=== PATIENT | female | born 1945 | race Caucasian/White ===

== ENCOUNTER 2017-11-28 15:52 | Inpatient (IN) | payer MEDICARE, OTHER ==
[~2017-11-28] VITALS: Ht 154.9 cm; Wt 54.9 kg
[~2017-11-28 15:52] MED LIST: BIOTIN PO; FURO-150 PO; SPIR25TA3 PO; VITAMIN D PO; VITC500T PO
[2017-11-28 16:42] LABS: BASOPHILS % (AUTO) 0.4 % (0-1); EOSINOPHILS # (AUTO) 0.1 X10'3 (0-0.9); EOSINOPHILS % (AUTO) 2.1 % (0-6); HEMATOCRIT 32.2 % (35.0-45.0); HEMOGLOBIN 11.2 g/dl (12.0-16.0); LYMPHOCYTES # (AUTO) 0.4 X10'3 (1.1-4.8); LYMPHOCYTES % (AUTO) 9.7 % (21-51); MEAN CORPUSCULAR HEMOGLOBIN 32.4 PG (27.0-31.0); MEAN CORPUSCULAR HGB CONC 34.7 % (33.0-36.5); MEAN CORPUSCULAR VOLUME 93.2 FL (78-98); MEAN PLATELET VOLUME 6.9 FL (7.4-10.4); MONOCYTES # (AUTO) 0.4 X10'3 (0-0.9); MONOCYTES % (AUTO) 10.4 % (2-12); NEUTROPHILS % (AUTO) 77.4 % (42-75); PLATELET COUNT 68 X10'3 (140-440); RED BLOOD COUNT 3.46 X10'6 (4.20-5.60); RED CELL DISTRIBUTION WIDTH 15.7 % (11.5-14.5); WHITE BLOOD COUNT 3.9 X10'3 (4.5-11.0)
[2017-11-28 16:51] LABS: INR 1.2 INR; PROTHROMBIN TIME 12.8 SECONDS (9.0-12.0)
[2017-11-28 16:59] LABS: ALANINE AMINOTRANSFERASE 28 U/L (12-78); ALBUMIN 2.7 G/DL (3.4-5.0); ALBUMIN/GLOBULIN RATIO 0.6 (1.1-1.5); ALKALINE PHOSPHATASE 92 IU/L (46-116); ANION GAP 9 (8-16); ASPARTATE AMINO TRANSFERASE 42 U/L (10-37); BILIRUBIN,TOTAL 1.8 MG/DL (0.1-1.0); BLOOD UREA NITROGEN 18 MG/DL (7-18); BUN/CREATININE RATIO 16.5 (6.6-38.0); CALCIUM 8.8 MG/DL (8.5-10.1); CHLORIDE 109 MMOL/L (99-107); CREATININE 1.09 MG/DL (0.40-0.90); ETHANOL < 0.010 GM/DL (0.0-0.010); GLUCOSE 123 MG/DL (70-104); POTASSIUM 3.6 MMOL/L (3.5-5.1); SODIUM 141 MMOL/L (135-145); TOTAL CARBON DIOXIDE 23.5 MMOL/L (24-32); TOTAL PROTEIN 6.9 G/DL (6.4-8.2); eGFR 50 ML/MIN
[2017-11-28 19:51] LABS: CLARITY,URINE SLIGHTLY CLOUDY (Clear); COLOR,URINE YELLOW (Yellow); GLUCOSE, URINE NEGATIVE (Neg); KETONES,URINE NEGATIVE (Neg); LEUKOCYTE ESTERASE ,URINE SMALL (Neg); NITRITES, URINE POSITIVE (Neg); OCCULT BLOOD,URINE LARGE (Neg); PROTEIN,URINE NEGATIVE (Neg)
[2017-11-28] MEDS ORDERED: normal saline 1000ML IV soln IVB ONE (20:00)
[2017-11-28] MEDS ORDERED: lactulose 20gm/30ml cup PO ONE (20:00)
[2017-11-28 20:07] LABS: UA COLLECTION TYPE CLN CATCH MIDSTREAM
[2017-11-28 20:08] LABS: BACTERIA,URINE 2+ /HPF (Neg); RBC,URINE 0-2 /HPF (0-2); SQUAMOUS EPITHELIAL CELL,UR FEW /LPF (FEW)
[2017-11-28] MEDS: normal saline 1000ml 1,000 ML IV SCH (20:22)
[2017-11-28] MEDS ORDERED: ondansetron/PF 4mg/2ml inj IV PRN (20:25)
[2017-11-28] MEDS ORDERED: magnesium hydroxide 30ml (MOM) UD suspension PO PRN (20:25)
[2017-11-28] MEDS ORDERED: mag hydrox/Alum hydrox/simeth 30ml oral suspension PO PRN (20:25)
[2017-11-28] MEDS ORDERED: traMADol 50MG tablet PO PRN (20:35)
[2017-11-28] MEDS: pantoprazole 40 MG vial IV SCH (21:16)
[2017-11-28] MEDS ORDERED: PANT40TA4 PO (22:59)
[2017-11-28] MEDS ORDERED: TRAM50TA2 PO (22:59)
[2017-11-28 23:00] VITALS: BP 126/55
[2017-11-28 23:18] LABS: URINE AMPHETAMINE SCREEN NEGATIVE (Neg); URINE BARBITUATE SCREEN NEGATIVE (Neg); URINE BENZODIAZEPINES SCREEN NEGATIVE (Neg); URINE CANNABINOID SCREEN NEGATIVE (Neg); URINE COCAINE SCREEN NEGATIVE (Neg); URINE METHADONE SCREEN NEGATIVE (Neg); URINE OPIATE SCREEN NEGATIVE (Neg); URINE PHENCYCLIDINE SCREEN NEGATIVE (Neg)
[2017-11-29] VITALS (11 sets, daily range): BP systolic 102–145; BP diastolic 34–69
[2017-11-29 06:36] LABS: HEMATOCRIT 24.6 % (35.0-45.0); HEMOGLOBIN 8.6 g/dl (12.0-16.0); MEAN CORPUSCULAR HEMOGLOBIN 32.4 PG (27.0-31.0); MEAN CORPUSCULAR HGB CONC 34.8 % (33.0-36.5); MEAN CORPUSCULAR VOLUME 93.1 FL (78-98); MEAN PLATELET VOLUME 7.3 FL (7.4-10.4); RED BLOOD COUNT 2.64 X10'6 (4.20-5.60); RED CELL DISTRIBUTION WIDTH 15.4 % (11.5-14.5)
[2017-11-29 07:01] LABS: ALBUMIN 2.1 G/DL (3.4-5.0); ANION GAP 9 (8-16); BLOOD UREA NITROGEN 15 MG/DL (7-18); BUN/CREATININE RATIO 16.1 (6.6-38.0); CALCIUM 7.6 MG/DL (8.5-10.1); CHLORIDE 116 MMOL/L (99-107); CREATININE 0.93 MG/DL (0.40-0.90); GLUCOSE 84 MG/DL (70-104); POTASSIUM 3.6 MMOL/L (3.5-5.1); SODIUM 145 MMOL/L (135-145); TOTAL CARBON DIOXIDE 19.9 MMOL/L (24-32); eGFR 60 ML/MIN
[2017-11-29 07:05] LABS: PLATELET COUNT 45 X10'3 (140-440)
[2017-11-29 07:09] LABS: ANISOCYTOSIS 1+; PLATELET ESTIMATE DECREASED; TOTAL CELLS COUNTED 100
[2017-11-29] MEDS: CefTRIAXone 2gm/D5W 50ml ADVTG 50 ML IV SCH (08:12)
[2017-11-29] MEDS: furosemide 20MG tablet PO SCH (08:12)
[2017-11-29] MEDS: pantoprazole 40 MG vial IV SCH ×2 (08:13→21:03)
[2017-11-29] MEDS: spironolactone 25 MG tablet PO SCH ×2 (08:13→21:03)
[2017-11-29] MEDS: normal saline 1000ml 1,000 ML IV SCH ×2 (08:17→21:04)
[2017-11-29] MEDS ORDERED: MIDAZolam 1mg/ml 10ml vial IV PRN (12:10)
[2017-11-29] MEDS ORDERED: simethicone 40mg/0.6ml oral drops 30ml MC ONE (12:10)
[2017-11-29] MEDS ORDERED: fentaNYL/PF 50MCG/1 ML 2ML syringe IV PRN (12:10)
[2017-11-29] MEDS ORDERED: normal saline 1000ml 1,000 ML IV SCH (12:10)
[2017-11-29] MEDS ORDERED: LIDOcaine Viscous 15ml cup PO ONE (12:10)
[2017-11-29] MEDS ORDERED: fentaNYL/PF 50MCG/1 ML 2ML syringe ONE (12:27)
[2017-11-29] MEDS ORDERED: MIDAZolam 1mg/ml 10ml vial ONE (12:27)
[2017-11-29] MEDS ORDERED: LIDOcaine Viscous 15ml cup ONE (12:27)
[2017-11-29 17:02] LABS: HEMATOCRIT 27.9 % (35.0-45.0); HEMOGLOBIN 9.6 g/dl (12.0-16.0); MEAN CORPUSCULAR HGB CONC 34.3 % (33.0-36.5); MEAN CORPUSCULAR VOLUME 93.3 FL (78-98); MEAN PLATELET VOLUME 6.7 FL (7.4-10.4); PLATELET COUNT 55 X10'3 (140-440); RED BLOOD COUNT 2.99 X10'6 (4.20-5.60); RED CELL DISTRIBUTION WIDTH 15.4 % (11.5-14.5); WHITE BLOOD COUNT 2.5 X10'3 (4.5-11.0)
[2017-11-30] MEDS: normal saline 1000ml 1,000 ML IV SCH ×2 (02:22→04:48)
[2017-11-30 03:00] VITALS: BP 106/35
[2017-11-30 05:17] LABS: BASOPHILS % (AUTO) 0.6 % (0-1); EOSINOPHILS # (AUTO) 0.1 X10'3 (0-0.9); EOSINOPHILS % (AUTO) 5.7 % (0-6); HEMOGLOBIN 8.4 g/dl (12.0-16.0); LYMPHOCYTES # (AUTO) 0.3 X10'3 (1.1-4.8); LYMPHOCYTES % (AUTO) 14.7 % (21-51); MEAN CORPUSCULAR HEMOGLOBIN 32.3 PG (27.0-31.0); MEAN CORPUSCULAR HGB CONC 34.8 % (33.0-36.5); MEAN CORPUSCULAR VOLUME 92.9 FL (78-98); MEAN PLATELET VOLUME 7.1 FL (7.4-10.4); MONOCYTES # (AUTO) 0.2 X10'3 (0-0.9); MONOCYTES % (AUTO) 12.2 % (2-12); NEUTROPHILS # (AUTO) 1.4 X10'3 (1.8-7.7); NEUTROPHILS % (AUTO) 66.8 % (42-75); RED BLOOD COUNT 2.58 X10'6 (4.20-5.60); RED CELL DISTRIBUTION WIDTH 15.5 % (11.5-14.5)
[2017-11-30 05:24] LABS: PLATELET COUNT 46 X10'3 (140-440)
[2017-11-30 05:52] LABS: ANION GAP 12 (8-16); BLOOD UREA NITROGEN 15 MG/DL (7-18); BUN/CREATININE RATIO 13.9 (6.6-38.0); CALCIUM 7.4 MG/DL (8.5-10.1); CHLORIDE 114 MMOL/L (99-107); CREATININE 1.08 MG/DL (0.40-0.90); GLUCOSE 77 MG/DL (70-104); POTASSIUM 3.4 MMOL/L (3.5-5.1); SODIUM 145 MMOL/L (135-145); TOTAL CARBON DIOXIDE 18.7 MMOL/L (24-32); eGFR 50 ML/MIN
[2017-11-30 06:00] VITALS: BP 101/32
[2017-11-30 07:04] LABS: PLATELET ESTIMATE DECREASED; TOTAL CELLS COUNTED 100
[2017-11-30 07:05] LABS: ANISOCYTOSIS 1+
[2017-11-30 07:06] LABS: ELLIPTOCYTES 1+; POIKILOCYTOSIS 1+; POLYCHROMASIA 1+
[2017-11-30 07:07] LABS: TEAR DROP CELLS 1+
[2017-11-30] MEDS ORDERED: LACTOBACILLUS RHAMNOSUS GG 15 billion unit sprinkle caps PO SCH (07:30)
[2017-11-30] MEDS: pantoprazole 40 MG vial IV SCH (08:34)
[2017-11-30] MEDS: spironolactone 25 MG tablet PO SCH (08:34)
[2017-11-30] MEDS: furosemide 20MG tablet PO SCH (08:34)
[2017-11-30] MEDS: CefTRIAXone 2gm/D5W 50ml ADVTG 50 ML IV SCH (08:34)
[2017-11-30] MEDS ORDERED: magnesium Cl slow-release 64mg tablet PO PRN (09:00)
[2017-11-30] MEDS ORDERED: potassium Cl 40MEQ/NS 500ml 500 ML IV PRN ×2 (09:00)
[2017-11-30] MEDS ORDERED: magnesium 2GM in 50ml NS 50 ML IV PRN (09:00)
[2017-11-30] MEDS ORDERED: potassium Cl 20 mEq SR tablet PO PRN ×2 (09:00)
[2017-11-30] MEDS ORDERED: magnesium 4gm in 100ml NS 100 ML IV PRN (09:00)
[2017-11-30 11:00] VITALS: BP 131/47
[2017-11-30 12:26] LABS: HEMATOCRIT 29.7 % (35.0-45.0); HEMOGLOBIN 10.2 g/dl (12.0-16.0); MEAN CORPUSCULAR HEMOGLOBIN 32.2 PG (27.0-31.0); MEAN CORPUSCULAR HGB CONC 34.4 % (33.0-36.5); MEAN CORPUSCULAR VOLUME 93.4 FL (78-98); MEAN PLATELET VOLUME 6.9 FL (7.4-10.4); PLATELET COUNT 57 X10'3 (140-440); RED BLOOD COUNT 3.18 X10'6 (4.20-5.60); RED CELL DISTRIBUTION WIDTH 15.3 % (11.5-14.5); WHITE BLOOD COUNT 2.7 X10'3 (4.5-11.0)
[2017-11-30] MEDS ORDERED: PANT-47 PO (14:15)
[2017-11-30 15:00] VITALS: BP 112/41
== END 2017-11-30 16:25 | disposition home or self-care (01) | DRG 441 ==
LOC: ER 15:54 → ED HOLD 20:22 → PCU 3S 21:59
PROVIDERS: ADMIT Internal Medicine; ATTEND Family Medicine
PROC: 0W3P8ZZ Control Bleeding in Gastrointestinal Tract, Via Natural or Artificial Opening Endoscopic (ICD-10-PCS; principal; 2017-11-29)
DX: K72.90 Hepatic failure, unspecified without coma (principal); I85.11 Secondary esophageal varices with bleeding; N17.9 Acute kidney failure, unspecified; D69.59 Other secondary thrombocytopenia; E86.0 Dehydration; D62 Acute posthemorrhagic anemia; K76.6 Portal hypertension; N39.0 Urinary tract infection, site not specified; K74.60 Unspecified cirrhosis of liver; K31.89 Other diseases of stomach and duodenum; K31.819 Angiodysplasia of stomach and duodenum without bleeding; B19.20 Unspecified viral hepatitis C without hepatic coma; Z90.89 Acquired absence of other organs; Z79.899 Other long term (current) drug therapy
CPT/HCPCS: 36415; 80048; 80053; 80305; 80320; 81001; 82140; 85025; 85027; 85610; 86885; 86900; 86901; 87070; 87077; 87088; 87186; 99285; A4620; C9113; G0500; J0696; J2250; J3010; J7030

== ENCOUNTER 2017-12-09 13:56 | Inpatient (IN) | payer MEDICARE, OTHER ==
[~2017-12-09] VITALS: Ht 149.9 cm; Wt 65.0 kg
[~2017-12-09 13:56] MED LIST changes: +PANT-47 PO; +TRAM50TA2 PO
[2017-12-09 14:47] LABS: BASOPHILS % (AUTO) 0.3 % (0-1); EOSINOPHILS # (AUTO) 0.1 X10'3 (0-0.9); EOSINOPHILS % (AUTO) 4.8 % (0-6); HEMATOCRIT 26.9 % (35.0-45.0); HEMOGLOBIN 9.3 g/dl (12.0-16.0); LYMPHOCYTES # (AUTO) 0.3 X10'3 (1.1-4.8); LYMPHOCYTES % (AUTO) 15.3 % (21-51); MEAN CORPUSCULAR HEMOGLOBIN 31.8 PG (27.0-31.0); MEAN CORPUSCULAR HGB CONC 34.6 % (33.0-36.5); MEAN CORPUSCULAR VOLUME 91.9 FL (78-98); MEAN PLATELET VOLUME 6.9 FL (7.4-10.4); MONOCYTES # (AUTO) 0.3 X10'3 (0-0.9); MONOCYTES % (AUTO) 11.9 % (2-12); NEUTROPHILS # (AUTO) 1.5 X10'3 (1.8-7.7); NEUTROPHILS % (AUTO) 67.7 % (42-75); PLATELET COUNT 54 X10'3 (140-440); RED BLOOD COUNT 2.93 X10'6 (4.20-5.60); RED CELL DISTRIBUTION WIDTH 14.9 % (11.5-14.5); WHITE BLOOD COUNT 2.2 X10'3 (4.5-11.0)
[2017-12-09 14:57] LABS: INR 1.3 INR; PROTHROMBIN TIME 13.6 SECONDS (9.0-12.0)
[2017-12-09] MEDS ORDERED: lactulose 20gm/30ml cup PO ONE ×2 (15:00→16:25)
[2017-12-09 15:16] LABS: ALANINE AMINOTRANSFERASE 22 U/L (12-78); ALBUMIN 2.3 G/DL (3.4-5.0); ALBUMIN/GLOBULIN RATIO 0.7 (1.1-1.5); ALKALINE PHOSPHATASE 71 IU/L (46-116); ANION GAP 7 (8-16); ASPARTATE AMINO TRANSFERASE 33 U/L (10-37); BILIRUBIN,TOTAL 1.2 MG/DL (0.1-1.0); BLOOD UREA NITROGEN 14 MG/DL (7-18); CALCIUM 7.4 MG/DL (8.5-10.1); CHLORIDE 111 MMOL/L (99-107); GLUCOSE 85 MG/DL (70-104); MAGNESIUM 1.4 MG/DL (1.5-2.4); POTASSIUM 3.4 MMOL/L (3.5-5.1); SODIUM 142 MMOL/L (135-145); TOTAL CARBON DIOXIDE 24.5 MMOL/L (24-32); TOTAL PROTEIN 5.8 G/DL (6.4-8.2); eGFR 55 ML/MIN
[2017-12-09 15:29] LABS: PLATELET ESTIMATE DECREASED
[2017-12-09 15:30] LABS: ELLIPTOCYTES 1+; TEAR DROP CELLS 1+
[2017-12-09 15:31] LABS: ANISOCYTOSIS 1+; POIKILOCYTOSIS 1+
[2017-12-09 15:40] LABS: TOTAL CELLS COUNTED 100
[2017-12-09 15:45] LABS: CLARITY,URINE CLOUDY (Clear); COLOR,URINE YELLOW (Yellow); GLUCOSE, URINE NEGATIVE (Neg); KETONES,URINE NEGATIVE (Neg); LEUKOCYTE ESTERASE ,URINE SMALL (Neg); NITRITES, URINE NEGATIVE (Neg); OCCULT BLOOD,URINE MODERATE (Neg); PH,URINE 6.5 (4.8-8.0); PROTEIN,URINE NEGATIVE (Neg); UROBILINOGEN,URINE >=8.0 E.U/dL (0.2-1.0)
[2017-12-09 15:50] LABS: UA COLLECTION TYPE STRAIGHT CATH
[2017-12-09 15:54] LABS: RBC,URINE 0-2 /HPF (0-2); WBC,URINE 30-50 /HPF (0-4)
[2017-12-09 15:55] LABS: BACTERIA,URINE 4+ /HPF (Neg); SQUAMOUS EPITHELIAL CELL,UR FEW /LPF (FEW)
[2017-12-09] MEDS ORDERED: lactulose 20gm/30ml cup RC ONE (16:30)
[2017-12-09] MEDS ORDERED: cefTRIAXone 1g/NS 100ml IVPB 100 ML IV ONE (17:00)
[2017-12-09] MEDS ORDERED: ondansetron/PF 4mg/2ml inj IV PRN (17:25)
[2017-12-09] MEDS ORDERED: acetaminophen 325mg tablet PO PRN (17:25)
[2017-12-09] MEDS ORDERED: magnesium 2GM in 50ml NS 50 ML IV PRN (17:25)
[2017-12-09] MEDS ORDERED: potassium Cl 40MEQ/NS 500ml 500 ML IV PRN ×2 (17:25)
[2017-12-09] MEDS ORDERED: potassium Cl 20 mEq SR tablet PO PRN (17:25)
[2017-12-09] MEDS ORDERED: magnesium 4gm in 100ml NS 100 ML IV PRN (17:25)
[2017-12-09] MEDS ORDERED: mag hydrox/Alum hydrox/simeth 30ml oral suspension PO PRN (17:25)
[2017-12-09] MEDS ORDERED: magnesium Cl slow-release 64mg tablet PO PRN (17:25)
[2017-12-09] MEDS ORDERED: traMADol 50MG tablet PO PRN (17:35)
[2017-12-09] MEDS: pantoprazole 40 MG vial IV SCH (17:57)
[2017-12-09] MEDS: lactulose 20gm/30ml cup PO SCH (20:59)
[2017-12-09] MEDS ORDERED: temazepam 15mg capsule PO PRN (21:00)
[2017-12-09] MEDS: rifaximin 550mg tablet PO SCH (21:00)
[2017-12-09] MEDS: spironolactone 25 MG tablet PO SCH (21:00)
[2017-12-09 21:30] VITALS: BP 130/56
[2017-12-10] VITALS: BP 109/51
[2017-12-10 05:24] LABS: BASOPHILS % (AUTO) 0.8 % (0-1); EOSINOPHILS # (AUTO) 0.1 X10'3 (0-0.9); EOSINOPHILS % (AUTO) 4.5 % (0-6); HEMATOCRIT 27.3 % (35.0-45.0); HEMOGLOBIN 9.4 g/dl (12.0-16.0); LYMPHOCYTES # (AUTO) 0.3 X10'3 (1.1-4.8); MEAN CORPUSCULAR HEMOGLOBIN 31.7 PG (27.0-31.0); MEAN CORPUSCULAR HGB CONC 34.2 % (33.0-36.5); MEAN CORPUSCULAR VOLUME 92.4 FL (78-98); MEAN PLATELET VOLUME 6.9 FL (7.4-10.4); MONOCYTES # (AUTO) 0.3 X10'3 (0-0.9); MONOCYTES % (AUTO) 12.2 % (2-12); NEUTROPHILS # (AUTO) 1.8 X10'3 (1.8-7.7); NEUTROPHILS % (AUTO) 70.5 % (42-75); PLATELET COUNT 64 X10'3 (140-440); RED BLOOD COUNT 2.95 X10'6 (4.20-5.60); RED CELL DISTRIBUTION WIDTH 14.4 % (11.5-14.5); WHITE BLOOD COUNT 2.5 X10'3 (4.5-11.0)
[2017-12-10 05:36] LABS: ALANINE AMINOTRANSFERASE 24 U/L (12-78); ALBUMIN 2.3 G/DL (3.4-5.0); ALBUMIN/GLOBULIN RATIO 0.7 (1.1-1.5); ALKALINE PHOSPHATASE 70 IU/L (46-116); ANION GAP 8 (8-16); ASPARTATE AMINO TRANSFERASE 36 U/L (10-37); BILIRUBIN,TOTAL 1.2 MG/DL (0.1-1.0); BLOOD UREA NITROGEN 12 MG/DL (7-18); CALCIUM 7.9 MG/DL (8.5-10.1); CHLORIDE 109 MMOL/L (99-107); GLUCOSE 97 MG/DL (70-104); MAGNESIUM 1.8 MG/DL (1.5-2.4); POTASSIUM 3.3 MMOL/L (3.5-5.1); SODIUM 141 MMOL/L (135-145); TOTAL PROTEIN 5.8 G/DL (6.4-8.2); eGFR 55 ML/MIN
[2017-12-10 07:49] VITALS: BP 109/59
[2017-12-10 07:59] LABS: EOSINOPHILS % (MANUAL) 4 % (0-6); LYMPHOCYTES % (MANUAL) 15 % (21-51); MONOCYTES % (MANUAL) 14 % (2-12); NEUTROPHILS % (MANUAL) 67 % (42-75); PLATELET ESTIMATE DECREASED; TOTAL CELLS COUNTED 100
[2017-12-10 08:00] LABS: ELLIPTOCYTES 1+; TEAR DROP CELLS 1+
[2017-12-10] MEDS ORDERED: BIOTIN 1000 MG PO SCH (08:00)
[2017-12-10] MEDS: K and/or MAG REPLACEMENT MC SCH (08:00)
[2017-12-10] MEDS: lactulose 20gm/30ml cup PO SCH ×2 (08:02→19:36)
[2017-12-10] MEDS: pantoprazole 40 MG vial IV SCH (08:03)
[2017-12-10] MEDS: furosemide 20MG tablet PO SCH (08:03)
[2017-12-10] MEDS: spironolactone 25 MG tablet PO SCH ×2 (08:03→19:35)
[2017-12-10] MEDS: rifaximin 550mg tablet PO SCH ×2 (08:03→19:35)
[2017-12-10] MEDS: cefTRIAXone 1g/NS 100ml IVPB 100 ML IV SCH (08:04)
[2017-12-10] MEDS: potassium Cl 20 mEq SR tablet PO PRN ×3 (08:05→22:43)
[2017-12-10] MEDS: cholecalciferol (vitamin D) 400 unit tablet PO SCH (09:53)
[2017-12-10 11:32] VITALS: BP 127/59
[2017-12-10 19:00] VITALS: BP 124/51
[2017-12-10 23:30] VITALS: BP 109/61
[2017-12-11 05:21] LABS: BASOPHILS % (AUTO) 0.7 % (0-1); EOSINOPHILS # (AUTO) 0.1 X10'3 (0-0.9); EOSINOPHILS % (AUTO) 5.9 % (0-6); HEMOGLOBIN 9.2 g/dl (12.0-16.0); LYMPHOCYTES # (AUTO) 0.5 X10'3 (1.1-4.8); LYMPHOCYTES % (AUTO) 18.4 % (21-51); MEAN CORPUSCULAR HEMOGLOBIN 32.7 PG (27.0-31.0); MEAN CORPUSCULAR HGB CONC 35.5 % (33.0-36.5); MEAN CORPUSCULAR VOLUME 92.2 FL (78-98); MEAN PLATELET VOLUME 6.9 FL (7.4-10.4); MONOCYTES # (AUTO) 0.3 X10'3 (0-0.9); MONOCYTES % (AUTO) 12.4 % (2-12); NEUTROPHILS # (AUTO) 1.6 X10'3 (1.8-7.7); NEUTROPHILS % (AUTO) 62.6 % (42-75); PLATELET COUNT 56 X10'3 (140-440); RED BLOOD COUNT 2.82 X10'6 (4.20-5.60); RED CELL DISTRIBUTION WIDTH 13.7 % (11.5-14.5); WHITE BLOOD COUNT 2.5 X10'3 (4.5-11.0)
[2017-12-11 05:59] LABS: ALANINE AMINOTRANSFERASE 24 U/L (12-78); ALBUMIN 2.1 G/DL (3.4-5.0); ALBUMIN/GLOBULIN RATIO 0.6 (1.1-1.5); ALKALINE PHOSPHATASE 63 IU/L (46-116); ANION GAP 6 (8-16); ASPARTATE AMINO TRANSFERASE 32 U/L (10-37); BILIRUBIN,TOTAL 1.2 MG/DL (0.1-1.0); BLOOD UREA NITROGEN 13 MG/DL (7-18); BUN/CREATININE RATIO 11.8 (6.6-38.0); CALCIUM 7.9 MG/DL (8.5-10.1); CHLORIDE 112 MMOL/L (99-107); GLUCOSE 92 MG/DL (70-104); MAGNESIUM 1.8 MG/DL (1.5-2.4); POTASSIUM 4.4 MMOL/L (3.5-5.1); SODIUM 142 MMOL/L (135-145); TOTAL CARBON DIOXIDE 23.6 MMOL/L (24-32); TOTAL PROTEIN 5.4 G/DL (6.4-8.2); eGFR 49 ML/MIN
[2017-12-11 06:22] LABS: PLATELET ESTIMATE DECREASED; TOTAL CELLS COUNTED 100
[2017-12-11 06:23] LABS: ELLIPTOCYTES 1+; POLYCHROMASIA 1+; TEAR DROP CELLS 1+
[2017-12-11 07:00] VITALS: BP 112/52
[2017-12-11] MEDS ORDERED: pantoprazole 40mg Tablet.DR PO SCH (07:30)
[2017-12-11] MEDS ORDERED: LACTOBACILLUS RHAMNOSUS GG 15 billion unit sprinkle caps PO SCH (07:30)
[2017-12-11] MEDS: K and/or MAG REPLACEMENT MC SCH (08:00)
[2017-12-11] MEDS: cholecalciferol (vitamin D) 400 unit tablet PO SCH (09:09)
[2017-12-11] MEDS: rifaximin 550mg tablet PO SCH (09:09)
[2017-12-11] MEDS: furosemide 20MG tablet PO SCH (09:10)
[2017-12-11] MEDS: spironolactone 25 MG tablet PO SCH (09:10)
[2017-12-11] MEDS: cefTRIAXone 1g/NS 100ml IVPB 100 ML IV SCH (09:10)
[2017-12-11 11:00] VITALS: BP 117/50
[2017-12-11] MEDS: lactulose 20gm/30ml cup PO SCH (11:52)
[2017-12-11] MEDS ORDERED: LACT10SO32 PO (16:31)
== END 2017-12-11 18:30 | disposition home or self-care (01) | DRG 441 ==
LOC: ER 13:56 → ED HOLD 17:23 → EDBEDREQ 20:33 → SUR 3N 21:30
PROVIDERS: ADMIT Hospitalist; ATTEND Internal Medicine
DX: K72.90 Hepatic failure, unspecified without coma (principal); G93.41 Metabolic encephalopathy; E87.0 Hyperosmolality and hypernatremia; E46 Unspecified protein-calorie malnutrition; D61.818 Other pancytopenia; J90 Pleural effusion, not elsewhere classified; K92.2 Gastrointestinal hemorrhage, unspecified; N39.0 Urinary tract infection, site not specified; K74.60 Unspecified cirrhosis of liver; E83.42 Hypomagnesemia; B19.20 Unspecified viral hepatitis C without hepatic coma; Z68.28 Body mass index [BMI] 28.0-28.9, adult; Z79.899 Other long term (current) drug therapy
CPT/HCPCS: 36415; 71045; 80053; 81001; 82140; 82948; 83735; 84484; 85025; 85610; 86885; 86900; 86901; 87070; 87077; 87088; 87186; 93005; 99291; C9113; J0696

== ENCOUNTER 2018-02-22 06:18 | Day surgery (SDC) | payer MEDICARE ==
[~2018-02-22] VITALS: Ht 149.9 cm; Wt 64.7 kg
[~2018-02-22 06:18] MED LIST changes: +LACT10SO32 PO; -VITC500T PO
[2018-02-22] MEDS ORDERED: LACT10SO7 PO (06:38)
[2018-02-22] MEDS ORDERED: PANT-47 PO (06:38)
[2018-02-22 06:39] VITALS: BP 102/57
[2018-02-22] MEDS ORDERED: albumin (human) 25% 100 ML IV solution IV PRN (06:45)
[2018-02-22] MEDS ORDERED: normal saline 1000ml 1,000 ML IV PRN (06:45)
== END 2018-02-22 08:33 | disposition home or self-care (01) ==
LOC: SSTAY O 06:18
PROVIDERS: ATTEND Radiology Diagnostic Radiology
DX: R18.8 Other ascites (principal); B19.20 Unspecified viral hepatitis C without hepatic coma; K74.60 Unspecified cirrhosis of liver; K21.9 Gastro-esophageal reflux disease without esophagitis; K76.6 Portal hypertension; Z72.89 Other problems related to lifestyle; Z90.89 Acquired absence of other organs; Z98.890 Other specified postprocedural states; Z79.899 Other long term (current) drug therapy
CPT/HCPCS: 76705; J7030; A6257

== ENCOUNTER 2018-02-23 08:58 | Day surgery (SDC) | payer MEDICARE ==
[~2018-02-23] VITALS: Ht 149.9 cm; Wt 61.8 kg
[~2018-02-23 08:58] MED LIST changes: -LACT10SO32 PO; +LACT10SO7 PO
[2018-02-23 09:08] VITALS: BP 121/65
[2018-02-23] MEDS ORDERED: fentaNYL/PF 50MCG/1 ML 2ML syringe ONE ×2 (10:17→10:42)
[2018-02-23] MEDS ORDERED: MIDAZolam 5mg/5ml vial ONE (10:18)
[2018-02-23] MEDS ORDERED: LIDOcaine Viscous 15ml cup ONE (10:18)
[2018-02-23 10:50] VITALS: BP 139/6
[2018-02-23 11:00] VITALS: BP 126/69
[2018-02-23 11:10] VITALS: BP 130/71
== END 2018-02-23 11:22 | disposition home or self-care (01) ==
LOC: GI LAB 08:58
PROVIDERS: ATTEND Internal Medicine Gastroenterology
DX: I85.00 Esophageal varices without bleeding (principal); K76.6 Portal hypertension; K31.89 Other diseases of stomach and duodenum; K21.9 Gastro-esophageal reflux disease without esophagitis; B19.20 Unspecified viral hepatitis C without hepatic coma; Z72.89 Other problems related to lifestyle; Z98.890 Other specified postprocedural states; Z79.899 Other long term (current) drug therapy
CPT/HCPCS: 43244; G0500; J2250; J3010; J7030; A4620

== ENCOUNTER 2018-05-11 10:24 | Inpatient (IN) | payer MEDICARE, OTHER ==
[~2018-05-11] VITALS: Ht 149.9 cm; Wt 54.0 kg
[~2018-05-11 10:24] MED LIST changes: -SPIR25TA3 PO; +SPIR25TA5 PO
[2018-05-11 11:48] LABS: BASOPHILS % (AUTO) 0.3 % (0-1); EOSINOPHILS # (AUTO) 0.1 X10'3 (0-0.9); EOSINOPHILS % (AUTO) 4.3 % (0-6); HEMATOCRIT 29.3 % (35.0-45.0); LYMPHOCYTES # (AUTO) 0.4 X10'3 (1.1-4.8); LYMPHOCYTES % (AUTO) 11.2 % (21-51); MEAN CORPUSCULAR HEMOGLOBIN 27.8 PG (27.0-31.0); MEAN CORPUSCULAR HGB CONC 34.2 % (33.0-36.5); MEAN CORPUSCULAR VOLUME 81.3 FL (78-98); MEAN PLATELET VOLUME 6.8 FL (7.4-10.4); MONOCYTES # (AUTO) 0.4 X10'3 (0-0.9); NEUTROPHILS # (AUTO) 2.3 X10'3 (1.8-7.7); NEUTROPHILS % (AUTO) 71.2 % (42-75); PLATELET COUNT 59 X10'3 (140-440); WHITE BLOOD COUNT 3.2 X10'3 (4.5-11.0)
[2018-05-11 11:59] LABS: INR 1.3 INR; PROTHROMBIN TIME 13.3 SECONDS (9.0-12.0)
[2018-05-11 12:05] LABS: ALANINE AMINOTRANSFERASE 26 U/L (12-78); ALBUMIN 2.4 G/DL (3.4-5.0); ALBUMIN/GLOBULIN RATIO 0.6 (1.1-1.5); ALKALINE PHOSPHATASE 162 IU/L (46-116); ANION GAP 11 (8-16); ASPARTATE AMINO TRANSFERASE 40 U/L (10-37); BILIRUBIN,TOTAL 1.7 MG/DL (0.1-1.0); BLOOD UREA NITROGEN 20 MG/DL (7-18); BUN/CREATININE RATIO 15.3 (6.6-38.0); CALCIUM 8.5 MG/DL (8.5-10.1); CHLORIDE 109 MMOL/L (99-107); CREATININE 1.31 MG/DL (0.40-0.90); GLUCOSE 97 MG/DL (70-104); POTASSIUM 4.1 MMOL/L (3.5-5.1); SODIUM 143 MMOL/L (135-145); TOTAL CARBON DIOXIDE 22.6 MMOL/L (24-32); TOTAL PROTEIN 6.2 G/DL (6.4-8.2); eGFR 40 ML/MIN
[2018-05-11] MEDS ORDERED: normal saline 1000ML IV soln IVB ONE (12:25)
[2018-05-11] MEDS ORDERED: lactulose 20gm/30ml cup RC ONE (12:25)
[2018-05-11] MEDS ORDERED: lactulose 20gm/30ml cup NG ONE (13:10)
[2018-05-11] MEDS ORDERED: ONDA8TAB9 PO (13:23)
[2018-05-11 13:32] LABS: CLARITY,URINE CLOUDY (Clear); COLOR,URINE YELLOW (Yellow); GLUCOSE, URINE NEGATIVE (Neg); KETONES,URINE NEGATIVE (Neg); LEUKOCYTE ESTERASE ,URINE MODERATE (Neg); NITRITES, URINE NEGATIVE (Neg); OCCULT BLOOD,URINE LARGE (Neg); PROTEIN,URINE 30 mg/dl (Neg)
[2018-05-11 13:50] LABS: UA COLLECTION TYPE STRAIGHT CATH
[2018-05-11 13:52] LABS: WBC,URINE 50-100 /HPF (0-4)
[2018-05-11 13:53] LABS: BACTERIA,URINE 4+ /HPF (Neg); MUCUS STRANDS MODERATE /LPF (Neg); SQUAMOUS EPITHELIAL CELL,UR FEW /LPF (FEW); WBC CLUMPS,URINE MODERATE /HPF (NEGATIVE)
[2018-05-11] MEDS ORDERED: acetaminophen 325mg tablet PO PRN (14:00)
[2018-05-11] MEDS ORDERED: morphine 4 MG/ML inj SYRINge IV PRN ×2 (14:00)
[2018-05-11] MEDS ORDERED: magnesium hydroxide 30ml (MOM) UD suspension PO PRN (14:00)
[2018-05-11] MEDS ORDERED: mag hydrox/Alum hydrox/simeth 30ml oral suspension PO PRN (14:00)
[2018-05-11] MEDS ORDERED: ondansetron/PF 4mg/2ml inj IV PRN (14:00)
[2018-05-11] MEDS: dextrose 5%-1/2 normal saline 1,000 ML IV SCH (14:29)
[2018-05-11 16:00] VITALS: BP 120/51
[2018-05-11 20:00] VITALS: BP 116/58
[2018-05-11] MEDS: pantoprazole 40mg Tablet.DR PO SCH (20:51)
[2018-05-11] MEDS: spironolactone 25 MG tablet PO SCH (20:51)
[2018-05-11] MEDS: lactulose 20gm/30ml cup PO SCH (20:51)
[2018-05-12] VITALS: BP 114/65
[2018-05-12] MEDS: dextrose 5%-1/2 normal saline 1,000 ML IV SCH (00:31)
[2018-05-12] MEDS: lactulose 20gm/30ml cup PO SCH ×2 (02:37→08:09)
[2018-05-12 05:46] LABS: BASOPHILS % (AUTO) 0.9 % (0-1); EOSINOPHILS # (AUTO) 0.2 X10'3 (0-0.9); EOSINOPHILS % (AUTO) 6.7 % (0-6); HEMATOCRIT 24.7 % (35.0-45.0); HEMOGLOBIN 8.5 g/dl (12.0-16.0); LYMPHOCYTES # (AUTO) 0.4 X10'3 (1.1-4.8); LYMPHOCYTES % (AUTO) 15.6 % (21-51); MEAN CORPUSCULAR HEMOGLOBIN 27.7 PG (27.0-31.0); MEAN CORPUSCULAR HGB CONC 34.4 % (33.0-36.5); MEAN CORPUSCULAR VOLUME 80.8 FL (78-98); MEAN PLATELET VOLUME 7.3 FL (7.4-10.4); MONOCYTES # (AUTO) 0.4 X10'3 (0-0.9); MONOCYTES % (AUTO) 12.9 % (2-12); NEUTROPHILS # (AUTO) 1.8 X10'3 (1.8-7.7); NEUTROPHILS % (AUTO) 63.9 % (42-75); PLATELET COUNT 51 X10'3 (140-440); RED BLOOD COUNT 3.06 X10'6 (4.20-5.60); RED CELL DISTRIBUTION WIDTH 18.2 % (11.5-14.5); WHITE BLOOD COUNT 2.8 X10'3 (4.5-11.0)
[2018-05-12 06:02] LABS: ANION GAP 11 (8-16); BLOOD UREA NITROGEN 18 MG/DL (7-18); CALCIUM 7.8 MG/DL (8.5-10.1); CHLORIDE 111 MMOL/L (99-107); GLUCOSE 119 MG/DL (70-104); POTASSIUM 3.7 MMOL/L (3.5-5.1); SODIUM 142 MMOL/L (135-145); TOTAL CARBON DIOXIDE 19.9 MMOL/L (24-32); eGFR 44 ML/MIN
[2018-05-12 06:40] LABS: ANISOCYTOSIS 2+; PLATELET ESTIMATE DECREASED; TOTAL CELLS COUNTED 100
[2018-05-12 07:00] VITALS: BP 118/55
[2018-05-12] MEDS ORDERED: traMADol 50MG tablet PO SCH (08:00)
[2018-05-12] MEDS ORDERED: BIOTIN 1000 MG PO SCH (08:00)
[2018-05-12] MEDS ORDERED: furosemide 20MG tablet PO SCH (08:00)
[2018-05-12] MEDS ORDERED: cholecalciferol (vitamin D) 400 unit tablet PO SCH (08:00)
[2018-05-12] MEDS: spironolactone 25 MG tablet PO SCH (08:07)
[2018-05-12] MEDS: pantoprazole 40mg Tablet.DR PO SCH (08:08)
== END 2018-05-12 11:15 | disposition home or self-care (01) | DRG 442 ==
LOC: ER 10:25 → ED HOLD 13:57 → SUR 3N 15:31
PROVIDERS: ADMIT Internal Medicine; ATTEND Internal Medicine
DX: K72.90 Hepatic failure, unspecified without coma (principal); N17.9 Acute kidney failure, unspecified; D61.818 Other pancytopenia; K74.60 Unspecified cirrhosis of liver; N18.3 Chronic kidney disease, stage 3 (moderate); E88.09 Other disorders of plasma-protein metabolism, not elsewhere classified; Z79.899 Other long term (current) drug therapy; Z86.19 Personal history of other infectious and parasitic diseases
CPT/HCPCS: 36415; 70450; 71045; 73700; 80048; 80053; 81001; 82140; 85025; 85610; 87070; 87077; 87088; 87186; 96360; 99285

== ENCOUNTER 2018-08-07 11:40 | Emergency (ER) | payer MEDICARE, OTHER ==
[~2018-08-07] VITALS: Ht 149.9 cm; Wt 57.0 kg
[~2018-08-07 11:40] MED LIST changes: +ONDA8TAB9 PO
[2018-08-07] MEDS ORDERED: LIDOcaine 1% 30ml preserv. free vial IJ ONE (12:50)
[2018-08-07 14:12] VITALS: BP 119/53
== END 2018-08-07 13:50 | disposition home or self-care (01) ==
LOC: ER 11:41
DX: S01.21XA Laceration without foreign body of nose, initial encounter (principal); S60.051A Contusion of right little finger without damage to nail, initial encounter; S09.90XA Unspecified injury of head, initial encounter; Z98.890 Other specified postprocedural states; Z79.899 Other long term (current) drug therapy; W19.XXXA Unspecified fall, initial encounter; Y93.01 Activity, walking, marching and hiking; Y92.89 Other specified places as the place of occurrence of the external cause; Y99.9 Unspecified external cause status
CPT/HCPCS: 12011; 70450; 99284; A6449; J3490